=== PATIENT | male | born 2005 | race Two or more races ===

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

== ENCOUNTER 2025-02-14 03:27 | Emergency (ER) | payer BC, OTHER ==
[~2025-02-14] VITALS: Ht 170.2 cm; Wt 59.1 kg
[~2025-02-14 03:27] MED LIST: ACET-3385 PO; AMOX-457 PO
[2025-02-14 03:49] VITALS: BP 135/70; PULSE 94; RESP 16; TEMP 99; O2SAT 98
[2025-02-14 04:19] LABS: COVID AG,FIA SOURCE NASAL SWAB
[2025-02-14 04:34] LABS: INFLUENZA TYPE A NEGATIVE FOR TYPE A (NEGATIVE); INFLUENZA TYPE B NEGATIVE FOR TYPE B (NEGATIVE); SARS-COV2 (COVID) ANTIGEN,FIA Negative (Negative)
[2025-02-14 04:36] LABS: RAPID GROUP A STREP NEGATIVE (NEGATIVE)
[2025-02-14] MEDS: ACETAMINOPHEN 325 MG TABLET PO ONE (04:55)
[2025-02-14] MEDS: ONDANSETRON 4 MG TABLET PO ONE (04:55)
[2025-02-14] MEDS: KETOROLAC TROMETHAMINE 30 MG/ML VIAL IM ONE (04:56)
[2025-02-14] MEDS: DEXAMETHASONE 4 MG TABLET PO ONE (04:56)
[2025-02-14] MEDS ORDERED: ONDA-104 PO (05:27)
== END 2025-02-14 05:33 | disposition home or self-care (01) ==
LOC: EMS 03:51
DX: J02.8 Acute pharyngitis due to other specified organisms (principal); B97.89 Other viral agents as the cause of diseases classified elsewhere; Z20.822 Contact with and (suspected) exposure to COVID-19
CPT/HCPCS: 99284; 87426; 87430; 87804; 96372; J1885; J8540; Q0162

== ENCOUNTER 2025-02-16 03:38 | Emergency (ER) | payer BC, OTHER ==
[~2025-02-16] VITALS: Ht 170.2 cm; Wt 59.1 kg
[~2025-02-16 03:38] MED LIST changes: +ONDA-104 PO
[2025-02-16 03:42] VITALS: TEMP 98.6
[2025-02-16] MEDS: CefTRIAXone SODIUM 1 GM/VIAL IM ONE (04:17)
[2025-02-16] MEDS: LIDOCAINE 2% VISCOUS 15 ML SOLUTION UDCUP PO ONE (04:17)
[2025-02-16] MEDS: LIDOCAINE 1% 10 ML VIAL SQ ONE (04:17)
[2025-02-16] MEDS: LIDOCAINE/PF 1% 2 ML VIAL IM ONE (04:17)
[2025-02-16] MEDS ORDERED: AZIT250T9 PO (04:35)
[2025-02-16] MEDS ORDERED: ACET-2080 PO (04:35)
[2025-02-16] MEDS ORDERED: IBUP-1554 PO (04:35)
[2025-02-16] MEDS: ACETAMINOPHEN/CODEINE 300-30 MG TABLET PO ONE (04:44)
[2025-02-16] MEDS: IBUPROFEN 600 MG TABLET PO ONE (04:45)
[2025-02-16 05:27] VITALS: BP 132/71; PULSE 84; RESP 20; O2SAT 98
== END 2025-02-16 05:31 | disposition home or self-care (01) ==
LOC: EMS 03:39
DX: J36 Peritonsillar abscess (principal)
CPT/HCPCS: 99284; 10160; 96372; J0696; J3490 ×2

== ENCOUNTER 2025-03-13 06:15 | Emergency (ER) | payer BC ==
[~2025-03-13] VITALS: Ht 170.2 cm; Wt 56.8 kg
[~2025-03-13 06:15] MED LIST changes: +ACET-2080 PO; +IBUP-1554 PO
[2025-03-13] MEDS: DEXAMETHASONE SOD PHOS 4 MG/ML 5 ML VIAL IVP ONE (07:07)
[2025-03-13] MEDS: CefTRIAXone 1 GM/DEXTROSE 50 ML IV ONE (07:08)
[2025-03-13 07:15] VITALS: TEMP 98.4
[2025-03-13] MEDS ORDERED: PRED-554 PO (08:28)
[2025-03-13] MEDS ORDERED: AMOX-457 PO (08:31)
[2025-03-13] MEDS ORDERED: IBUP-1492 PO (08:31)
[2025-03-13 09:04] VITALS: BP 136/70; PULSE 94; RESP 18; O2SAT 96
== END 2025-03-13 09:11 | disposition home or self-care (01) ==
LOC: EMS 06:16
DX: J36 Peritonsillar abscess (principal); Z79.899 Other long term (current) drug therapy
CPT/HCPCS: 99285; 96365; 70450; 96366; 96375; J0696; J1100